=== PATIENT | male | born 1940 ===

== ENCOUNTER 2023-12-22 18:26 | Emergency (ER) | payer MEDICARE ==
[2023-12-22] MEDS ORDERED: HYDROmorphone 1 MG/ML 1 ML SYRINGE ONE (18:48)
[2023-12-22] MEDS ORDERED: SODIUM CHLORIDE 0.9% 1,000 ML BAG ONE (18:56)
[2023-12-22] MEDS ORDERED: ACET/COD 300 MG/30 MG STARTER PACK 6 TAB BTL PO ONE (21:21)
--- NOTE | 2024-01-18 11:35 | XR ---
EXAMINATION TYPE: XR chest 1V DATE OF EXAM: 01/18/2024 11:17 AM COMPARISON: None TECHNIQUE: XR chest 1V Frontal view of the chest. CLINICAL INDICATION:Male, 83 years old with history of PAIN,FALL; FINDINGS: Lungs/Pleura: Low lung volumes are present. There is no evidence of pleural effusion, focal consolida tion, or pneumothorax. Heart/mediastinum: Cardiomediastinal silhouette is enlarged. Musculoskeletal: No acute osseous pathology. IMPRESSION: Low lung volumes with a generalized hazy appearance which could represent atelectasis versus pulmonar y edema correlate with serum BNP.
--- NOTE | 2024-01-18 11:37 | XR ---
EXAMINATION TYPE: XR knee complete RT DATE OF EXAM: 12/22/2023 COMPARISON: NONE HISTORY: Pain, fall TECHNIQUE: Frontal, lateral and oblique images of the right knee are obtained. COMPARISON: None. FINDINGS: There is no acute fracture/dislocation evident. The joint spaces appear within normal honeycutt its. The overlying soft tissue appears unremarkable. IMPRESSION: There is no acute fracture or dislocation seen.
--- NOTE | 2024-01-18 11:40 | XR ---
EXAMINATION TYPE: XR wrist complete RT DATE OF EXAM: 12/22/2023 INDICATION: Patient age:Male; 83 years old; Reason for study: PAIN,FALL; PHH. COMPARISON: None TECHNIQUE: PA, oblique, lateral views of the right wrist were obtained. FINDINGS: Acute comminuted fracture through the proximal right radial metaphysis. Volar angulation id entified of the distal fracture fragment. Surrounding soft tissue swelling. No dislocation. IMPRESSION: Acute comminuted angulated fracture of the proximal right radius.
--- NOTE | 2024-01-18 11:42 | XR ---
EXAMINATION TYPE: XR Hip RT and AP Pelvis DATE OF EXAM: 12/22/2023 INDICATION: Patient age:Male; 83 years old; Reason for study: PAIN,FALL; PHH. COMPARISON: None. TECHNIQUE: The right hip was examined in the frontal and lateral projections and a AP pelvis. FINDINGS: No evidence of any acute osseous pathology, joint dislocation, or soft tissue swelling. Med ial joint space narrowing with acetabular sclerosis and marginal osteophytosis of both hips. Pelvic p hleboliths. IMPRESSION: 1. No acute osseous pathology. 2. Mild osteoarthritic changes of both hips.
--- NOTE | 2024-01-28 08:57 | XR ---
Site ID [id number] Patient Magnus Shipman ID [id number] EXAMINATION TYPE: XR wrist limited RT DATE OF EXAM: 12/23/2023 11:56 AM CLINICAL INDICATION: Pain COMPARISON: THIS EXAM WAS READ DURING PACS DOWNTIME, NO PRIORS AVAILABLE. TECHNIQUE: XR wrist limited RT; examined in the Frontal, navicular, lateral, and oblique. FINDINGS/IMPRESSION: Acute right distal radius fracture with mild dorsal angulation. Cast/splint material in place. There is soft tissue swelling. No additional fractures. No intra-articular extension definitively visualize d.
--- NOTE | 2024-01-29 12:19 | CT ---
BRIE LOPEZ : 1940 EXAM: CT brain without contrast. CT cervical spine without contrast. CT maxillary facial structures without contrast. DATE: 12/22/2023 20:53 INDICATION: Reason for study: Fall, pain COMPARISON: None, please note PACS downtime occurred during the radiologist interpretation of these i mages with limited priors/reports.. TECHNIQUE: Multiple axial CT images of the brain were obtained without IV contrast. Axial CT images from the skull base to the inferior aspect of T2 we obtained without intravenous cont rast. Coronal and sagittal reformatted images were also reviewed. Axial CT imaging of the maxillary facial structures with sagittal and coronal reformats. One or more CT dose reduction strategies were utilized during this examination. Total DLP administered was 1350.4 mGycm . FINDINGS:CT BRAIN: Extra-axial spaces: No abnormal extra-axial fluid collections. Ventricular system: Dilatation in proportion to cerebral atrophy. Cerebral parenchyma: Cerebral atrophy. No acute intraparenchymal hemorrhage or mass effect. The urias -white junction is well differentiated. Scattered hypoattenuating areas are seen within the white mat ter. Cerebellum: Unremarkable. Mass effect: No evidence of midline shift. Intracranial vasculature: Atherosclerotic calcifications of the intracranial vessels. Soft tissues: Normal. Calvarium/osseous structures: No depressed skull fracture. Visualized orbits: Right aphakia. CT CERVICAL SPINE: Fracture: None. Osseous structures: Multilevel degenerative disc disease changes with endplate spurring and disc oste ophyte complex's. Vertebral alignment: Within normal limits. Spinal canal/Neural Foramina: No evidence of significant spinal canal narrowing. No evidence of signi ficant neural foramina narrowing. Neck soft tissues: Prevertebral soft tissues are within normal limits. Other: The airway is patent. The lung apices are clear. CT FACIAL: Cortical irregularity involving the left posterior maxillary sinus series 212 image 55. Th ere is soft tissue left cheek edema overlying this general region. Layering debris within the left ma xillary sinus has density units compatible with blood products and/or proteinaceous contents. No dominguez tional evidence of fracture. Degeneration changes of the temporal mandibular joints bilaterally with joint space narrowing and osteophyte formation. The globes and orbits are intact. There is complete o pacification of the right maxillary sinus with mucosal thickening. IMPRESSION: 1. Cortical irregularity of the posterior left maxillary sinus wall possibly representing minimally displaced fracture. There is layering secretions in the left maxillary sinus possibly blood products. No priors for comparison. 2. No acute intracranial process 3. No evidence of cervical spine fracture. 4. Moderate multilevel degenerative disc disease. 5. Mild paranasal sinus disease worse in the right maxillary sinus. [facility], , 01/29/2024 12:17 PM
== END 2023-12-22 21:44 | disposition home or self-care (01) ==
LOC: EC 18:26
DX: M25.532 Pain in left wrist (principal); W01.0XXA Fall on same level from slipping, tripping and stumbling without subsequent striking against object, initial encounter
CPT/HCPCS: 73502; 73100; 73110; 73562; 71045; 72125; 70486; 70450; 99284; 96374; 96361; J1170